=== PATIENT | male | born 1980 | race African-American/Black ===

== ENCOUNTER 2017-01-16 19:24 | Emergency (ER) | payer OTHER ==
--- NOTE | 2017-01-16 19:54 | DIAGNOSTIC IMAGING REPORT ---
PROCEDURE: XR ANKLE 3 OR 4 VIEWS - LEFT INDICATION: TRAUMA/INJURY TECHNIQUE: Four views. COMPARISON: None. FINDINGS: Osseous structures, joint spaces and soft tissues are normal. Ankle mortise is normal. IMPRESSION: 1. Normal left ankle.
--- NOTE | 2017-01-16 19:56 | ED NURSING NOTES ---
Clinical Report - Nurses [facility] [place] [address] 01/16/2017 19:25 Patient: MESSI HERNADEZ TRIAGE Triage time 19:34. Chief Complaint: LEFT LOWER EXTREMITY SWELLING and REDNESS. --19:38 Sheriff Stafford R.N. 19:34 01/16/17. BP: 149/89. HR: 95. RR: 18. O2 saturation: 95%. Temp: 98.7 F. Pain level now: 05/06. --19:38 Sheriff Stafford R.N. Weight: 109.7 kg stated. Height/Length: 74 inches Per Patient. BMI: 31.1. --19:38 Sheriff Stafford R.N. Medications AmLODIPine Besylate Oral 7.5, daily. Aspirin Oral (Tablet 325 mg), daily. Cyclobenzaprine HCl Oral (Tablet 10 mg) 1 tablet, 3x a day as needed. Hydrochlorothiazide Oral 25 mg, daily. --19:36 Sheriff Stafford R.N. Allergies No Known Drug Allergy. --19:36 Sheriff Stafford R.N. History Arrived by private vehicle. Historian: patient. Unaccompanied. Injury occurred. Location of injuries: left lateral ankle. Occurred at home. PAST MEDICAL HX: Tetanus status: up-to-date. SURGERY HX: No history of previous surgery. SOCIAL HX: Never smoker. History of drug use: marijuana. No alcohol use. FALL RISK ASSESSMENT: Fall risk assessment completed. No fall risk identified. NUTRITIONAL RISK ASSESSMENT: The nutritional risk assessment revealed no deficiencies. FUNCTIONAL ASSESSMENT: Functional assessment: no impairments noted. LEARNING NEEDS ASSESSMENT: The learning needs assessment revealed no barriers. SKIN INTEGRITY ASSESSMENT: Skin integrity risk assessment completed. No skin integrity risk identified. --19:38 Sheriff Stafford R.N. PROBLEMS: Constipation. Prior Injury, Same Area. Skin Avulsion. Plantar Puncture Wound. Uveitis. Chronic Headache. Anxiety Reaction. Headache. Arthritis. Fibromyalgia. CVA - Cerebrovascular Accident. Hypertension. Dyspepsia. Borderline diabetic. Cellulitis. Gout. Tetanus Status. Immunizations. --19:37 Sheriff Stafford R.N. PHYSICAL ASSESSMENT GENERAL / NEURO / PSYCH: Oriented X 4. Alert. Appears in no acute distress. Appears in pain. EXTREMITIES: Extremity pulses are within normal limits. Left ankle: tenderness and swelling. SKIN: Skin intact. Skin is warm and dry. --19:39 Sheriff Stafford R.N. NURSING PROGRESS NOTES Two patient identifiers checked. Call light placed in reach. Side rails up x 2. Bed placed in lowest position. Brakes of bed on. --19:39 Sheriff Stafford R.N. Cold pack applied. 4 inch karl bandage applied to left ankle. --20:31 McQuoid, Georgie, ER Tech1. DISPOSITION / DISCHARGE Condition at departure: stable. No learning barriers present. Discharge instructions provided and reviewed with the patient. Reviewed medication(s) side effects, precautions, dosing and course information. Prescription(s) given to the patient. Patient verbalized understanding. Written instructions provided in Malian. The patient was discharged home. He left the Emergency Department ambulatory and via private vehicle. ( Pt requesting to speak with provider. Pt unhappy, states that he is in too much pain for it not to be broken. Autumn Pérez notified and spoke with pt. Pt states he drove all the way here in a car with manual transmission from [employer] & can't drive all the way home now. Karl wrap ordered for pt comfort. Pt instructed to fill the Rx given and go home, elevate foot and rest.). --20:09 Joycelyn Michael R.N. 20:04 01/16/17. BP: deferred. HR: deferred. RR: 15 (regular and unlabored). O2 saturation: deferred. Temp: deferred. Godfrey-Perez pain scale: 01/04. --20:09 Joycelyn Michael R.N. Locked/Released at 01/16/2017 20:31 by Joycelyn Michael R.N.
--- NOTE | 2017-01-16 19:56 | ED CLINICAL REPORT ---
Clinical Report - Physicians/Mid Levels [facility] [address] [place] [address] 01/16/2017 19:25 Patient: MESSI HERNADEZ Time Seen: 1924; upon arrival, initial patient contact, initial documentation, patient care assumed. Arrived- By private vehicle. Historian- patient. HISTORY OF PRESENT ILLNESS Chief Complaint: Injury to the left ankle. The injury happened yesterday. The patient sustained a direct blow- kicked furniture (hit on bar stool). Occurred at home. ( states he hit it yesterday, but pain started today). Patient is experiencing severe pain. Patient denies injury to the head or neck. No other injury. REVIEW OF SYSTEMS The patient complains of pain on weight bearing. He has had swelling. No tingling, weakness, numbness, suspected foreign body or skin laceration. All systems otherwise negative, except as recorded above. PAST HISTORY See nurses notes. PROBLEMS: Constipation. Prior Injury, Same Area. Skin Avulsion. Plantar Puncture Wound. Uveitis. Chronic Headache. Anxiety Reaction. Headache. Arthritis. Fibromyalgia. CVA - Cerebrovascular Accident. Hypertension. Dyspepsia. Borderline diabetic. Cellulitis. Gout. Tetanus Status. Immunizations. --19:37 Sheriff Stafford R.N. SOCIAL HISTORY Never smoker. History of drug use: marijuana. No alcohol use. No recent travel. Is a local resident. FAMILY HISTORY No significant family medical history. ADDITIONAL NOTES The nursing notes have been reviewed with agreement regarding the chief complaint, HPI, ROS, PMH and patient medications and allergies. PHYSICAL EXAM Vital Signs: 01/16/2017 19:34 BP: 149/89. HR: 95. RR: 18. O2 saturation: 95%. Temp: 98.7 F. Pain level now: 10/10. Have been reviewed as normal and appear to be correct. Appearance: Alert. Oriented X3. No acute distress. Head: Head atraumatic. Eyes: Pupils equal, round and reactive to light. Eyes normal inspection. Respiratory: No respiratory distress. Skin: Skin intact. Skin warm and dry. Extremities: Ankle injury present. Left lateral ankle: mild tenderness of the lateral malleolus. Limited ROM secondary to pain (diminished plantar flexion, dorsiflexion, inversion and eversion). Neurovascular intact distally. No ligamentous laxity present. No joint effusion. No erythema, swelling, laceration, abrasion or ecchymosis. No puncture wound, foreign body or deformity. No foot injury. Foot and ankle exam otherwise negative. Extremities otherwise negative. Gait: Abnormal gait. Gait not tested due to pain. Neuro, Vascular and Tendons: Vascular status intact. Sensation intact. Motor intact. Tendon function intact. Neuro: Oriented X 3. No motor deficit. No sensory deficit. Note: isolated injury to ankle. LABS, X-RAYS, AND EKG X-Rays: Left ankle negative. Lt Ankle X-ray: (IMPRESSION: 1. Normal left ankle. Electronically Final signed by:Karri Swanson MD 01/16/2017 7:53:42 PM). The X-rays were interpreted by the radiologist and contemporaneously by me. Interpretation time: 19:54. 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 Patient counseled in person regarding the patient's stable condition, test results and diagnosis. 19:54. Differential Diagnosis: Other possible considerations: ankle fx vs contusions. Above considerations are based on history, physical exam, reassessment and X-Ray data. Differential diagnosis was discussed with patient. Disposition: Discharged home in good and unchanged condition (19:56). Condition: good and stable. CLINICAL IMPRESSION Acute nontraumatic pain in the left lower extremity (ankle). INSTRUCTIONS Apply ice for 20 minutes four times a day for one. Elevate affected areas above chest level for one days until better. Warnings: GENERAL WARNINGS: Return or contact your physician immediately if your condition worsens or changes unexpectedly, if not improving as expected, or if other problems arise. Specifically return if problem worsens. Prescription Medications: Naproxen 500 mg tablets: take 1 orally every 12 hours as needed for pain. Dispense twenty (20). No refills. Follow-up: Follow up with your doctor in about one week even if well. Summary of care provided to patient. Understanding of the discharge instructions verbalized by patient. (Electronically signed by Autumn Pérez A.R.N.P. 01/16/2017 20:51)
--- NOTE | 2017-01-16 19:56 | ED CLINICAL REPORT ---
Clinical Report - Physicians/Mid Levels [facility] [address] [place] [address] 01/16/2017 19:25 Patient: MESSI HERNADEZ Time Seen: 1924; upon arrival, initial patient contact, initial documentation, patient care assumed. Arrived- By private vehicle. Historian- patient. HISTORY OF PRESENT ILLNESS Chief Complaint: Injury to the left ankle. The injury happened yesterday. The patient sustained a direct blow- kicked furniture (hit on bar stool). Occurred at home. ( states he hit it yesterday, but pain started today). Patient is experiencing severe pain. Patient denies injury to the head or neck. No other injury. REVIEW OF SYSTEMS The patient complains of pain on weight bearing. He has had swelling. No tingling, weakness, numbness, suspected foreign body or skin laceration. All systems otherwise negative, except as recorded above. PAST HISTORY See nurses notes. PROBLEMS: Constipation. Prior Injury, Same Area. Skin Avulsion. Plantar Puncture Wound. Uveitis. Chronic Headache. Anxiety Reaction. Headache. Arthritis. Fibromyalgia. CVA - Cerebrovascular Accident. Hypertension. Dyspepsia. Borderline diabetic. Cellulitis. Gout. Tetanus Status. Immunizations. --19:37 Sheriff Stafford R.N. SOCIAL HISTORY Never smoker. History of drug use: marijuana. No alcohol use. No recent travel. Is a local resident. FAMILY HISTORY No significant family medical history. ADDITIONAL NOTES The nursing notes have been reviewed with agreement regarding the chief complaint, HPI, ROS, PMH and patient medications and allergies. PHYSICAL EXAM Vital Signs: 01/16/2017 19:34 BP: 149/89. HR: 95. RR: 18. O2 saturation: 95%. Temp: 98.7 F. Pain level now: 10/10. Have been reviewed as normal and appear to be correct. Appearance: Alert. Oriented X3. No acute distress. Head: Head atraumatic. Eyes: Pupils equal, round and reactive to light. Eyes normal inspection. Respiratory: No respiratory distress. Skin: Skin intact. Skin warm and dry. Extremities: Ankle injury present. Left lateral ankle: mild tenderness of the lateral malleolus. Limited ROM secondary to pain (diminished plantar flexion, dorsiflexion, inversion and eversion). Neurovascular intact distally. No ligamentous laxity present. No joint effusion. No erythema, swelling, laceration, abrasion or ecchymosis. No puncture wound, foreign body or deformity. No foot injury. Foot and ankle exam otherwise negative. Extremities otherwise negative. Gait: Abnormal gait. Gait not tested due to pain. Neuro, Vascular and Tendons: Vascular status intact. Sensation intact. Motor intact. Tendon function intact. Neuro: Oriented X 3. No motor deficit. No sensory deficit. Note: isolated injury to ankle. LABS, X-RAYS, AND EKG X-Rays: Left ankle negative. Lt Ankle X-ray: (IMPRESSION: 1. Normal left ankle. Electronically Final signed by:Karri Swanson MD 01/16/2017 7:53:42 PM). The X-rays were interpreted by the radiologist and contemporaneously by me. Interpretation time: 19:54. 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 Patient counseled in person regarding the patient's stable condition, test results and diagnosis. 19:54. Differential Diagnosis: Other possible considerations: ankle fx vs contusions. Above considerations are based on history, physical exam, reassessment and X-Ray data. Differential diagnosis was discussed with patient. Disposition: Discharged home in good and unchanged condition (19:56). Condition: good and stable. CLINICAL IMPRESSION Acute nontraumatic pain in the left lower extremity (ankle). INSTRUCTIONS Apply ice for 20 minutes four times a day for one. Elevate affected areas above chest level for one days until better. Warnings: GENERAL WARNINGS: Return or contact your physician immediately if your condition worsens or changes unexpectedly, if not improving as expected, or if other problems arise. Specifically return if problem worsens. Prescription Medications: Naproxen 500 mg tablets: take 1 orally every 12 hours as needed for pain. Dispense twenty (20). No refills. Follow-up: Follow up with your doctor in about one week even if well. Summary of care provided to patient. Understanding of the discharge instructions verbalized by patient. (Electronically signed by Autumn Pérez A.R.N.P. 01/16/2017 20:51)
--- NOTE | 2017-01-16 19:56 | ED NURSING NOTES ---
Clinical Report - Nurses [facility] [place] [address] 01/16/2017 19:25 Patient: MESSI HERNADEZ TRIAGE Triage time 19:34. Chief Complaint: LEFT LOWER EXTREMITY SWELLING and REDNESS. --19:38 Sheriff Stafford R.N. 19:34 01/16/17. BP: 149/89. HR: 95. RR: 18. O2 saturation: 95%. Temp: 98.7 F. Pain level now: 05/06. --19:38 Sheriff Stafford R.N. Weight: 109.7 kg stated. Height/Length: 74 inches Per Patient. BMI: 31.1. --19:38 Sheriff Stafford R.N. Medications AmLODIPine Besylate Oral 7.5, daily. Aspirin Oral (Tablet 325 mg), daily. Cyclobenzaprine HCl Oral (Tablet 10 mg) 1 tablet, 3x a day as needed. Hydrochlorothiazide Oral 25 mg, daily. --19:36 Sheriff Stafford R.N. Allergies No Known Drug Allergy. --19:36 Sheriff Stafford R.N. History Arrived by private vehicle. Historian: patient. Unaccompanied. Injury occurred. Location of injuries: left lateral ankle. Occurred at home. PAST MEDICAL HX: Tetanus status: up-to-date. SURGERY HX: No history of previous surgery. SOCIAL HX: Never smoker. History of drug use: marijuana. No alcohol use. FALL RISK ASSESSMENT: Fall risk assessment completed. No fall risk identified. NUTRITIONAL RISK ASSESSMENT: The nutritional risk assessment revealed no deficiencies. FUNCTIONAL ASSESSMENT: Functional assessment: no impairments noted. LEARNING NEEDS ASSESSMENT: The learning needs assessment revealed no barriers. SKIN INTEGRITY ASSESSMENT: Skin integrity risk assessment completed. No skin integrity risk identified. --19:38 Sheriff Stafford R.N. PROBLEMS: Constipation. Prior Injury, Same Area. Skin Avulsion. Plantar Puncture Wound. Uveitis. Chronic Headache. Anxiety Reaction. Headache. Arthritis. Fibromyalgia. CVA - Cerebrovascular Accident. Hypertension. Dyspepsia. Borderline diabetic. Cellulitis. Gout. Tetanus Status. Immunizations. --19:37 Sheriff Stafford R.N. PHYSICAL ASSESSMENT GENERAL / NEURO / PSYCH: Oriented X 4. Alert. Appears in no acute distress. Appears in pain. EXTREMITIES: Extremity pulses are within normal limits. Left ankle: tenderness and swelling. SKIN: Skin intact. Skin is warm and dry. --19:39 Sheriff Stafford R.N. NURSING PROGRESS NOTES Two patient identifiers checked. Call light placed in reach. Side rails up x 2. Bed placed in lowest position. Brakes of bed on. --19:39 Sheriff Stafford R.N. Cold pack applied. 4 inch karl bandage applied to left ankle. --20:31 McQuoid, Georgie, ER Tech1. DISPOSITION / DISCHARGE Condition at departure: stable. No learning barriers present. Discharge instructions provided and reviewed with the patient. Reviewed medication(s) side effects, precautions, dosing and course information. Prescription(s) given to the patient. Patient verbalized understanding. Written instructions provided in [place]. The patient was discharged home. He left the Emergency Department ambulatory and via private vehicle. ( Pt requesting to speak with provider. Pt unhappy, states that he is in too much pain for it not to be broken. Autumn Pérez notified and spoke with pt. Pt states he drove all the way here in a car with manual transmission from [place] & can't drive all the way home now. Karl wrap ordered for pt comfort. Pt instructed to fill the Rx given and go home, elevate foot and rest.). --20:09 Joycelyn Michael R.N. 20:04 01/16/17. BP: deferred. HR: deferred. RR: 15 (regular and unlabored). O2 saturation: deferred. Temp: deferred. Godfrey-Perez pain scale: 01/04. --20:09 Joycelyn Michael R.N. Locked/Released at 01/16/2017 20:31 by Joycelyn Michael R.N.
--- NOTE | 2017-01-16 19:57 | ED ORDER SUMMARY ---
..... Patient: MESSI HERNADEZ OrderSheet [facility] VisitID: [id number] [address] [place] [address] 36y, M Registration Date/Time: 01/16/2017 ORDER SHEET Weight: 109.7 kg (stated) Allergies: No Known Drug Allergy GENERAL ORDERS: Ankle 3 or 4V Left Urgent (19:36 01/16/2017 HBivens A.R.N.P.) (Ack 19:37 AMcQuoid ER Tech1) (19:48 Melyssa) Karl Wrap (20:12 01/16/2017 HBivens A.R.N.P.) (20:12 Mariola Tran.Mark.) MEDICATION ORDERS: IV FLUIDS: ORDER SHEET NOTES: [Electronically signed by Joycelyn Michael R.N. (20:31 01/16/2017)] [Electronically signed by Autumn PérezR.N.PRyan (20:51 01/16/2017)] [Electronically locked/signed by Joycelyn Michael R.N. (20:31 01/16/2017)]
--- NOTE | 2017-01-16 19:57 | ED ORDER SUMMARY ---
..... Patient: MESSI HERNADEZ OrderSheet [facility] VisitID: [id number] [address] [place] [address] 36y, M Registration Date/Time: 01/16/2017 ORDER SHEET Weight: 109.7 kg (stated) Allergies: No Known Drug Allergy GENERAL ORDERS: Ankle 3 or 4V Left Urgent (19:36 01/16/2017 HBivens A.R.N.P.) (Ack 19:37 AMcQuoid ER Tech1) (19:48 Melyssa) Karl Wrap (20:12 01/16/2017 HBivens A.R.N.P.) (20:12 Mariola Tran.Mark.) MEDICATION ORDERS: IV FLUIDS: ORDER SHEET NOTES: [Electronically signed by Joycelyn Michael R.N. (20:31 01/16/2017)] [Electronically signed by Autumn PérezR.N.PRyan (20:51 01/16/2017)] [Electronically locked/signed by Joycelyn Michael R.N. (20:31 01/16/2017)]
--- NOTE | 2017-01-16 20:51 | ED MAR SUMMARY ---
..... Medication Administration Record [facility] [address] [place] [address] Patient: MESSI HERNADEZ Visit ID: [id number] 36y, M Weight: 109.7 kg Height/Length: 74 in BMI: 31.1 ALLERGIES: No Known Drug Allergy
--- NOTE | 2017-01-16 20:51 | ED DISCHARGE INSTRUCTIONS ---
Patient: MESSI HERNADEZ General Instructions [facility] VisitID: [id number] [place] [address] 36y, M Registration Date/Time: 01/16/2017 Acute nontraumatic pain in the left lower extremity (ankle). INSTRUCTIONS Apply ice for 20 minutes four times a day for one. Elevate affected areas above chest level for one days until better. Warnings: GENERAL WARNINGS: Return or contact your physician immediately if your condition worsens or changes unexpectedly, if not improving as expected, or if other problems arise. Specifically return if problem worsens. Prescription Medications: Naproxen 500 mg tablets: take 1 orally every 12 hours as needed for pain. Dispense twenty (20). No refills. Follow-up: Follow up with your doctor in about one week even if well. Summary of care provided to patient. Understanding of the discharge instructions verbalized by patient. ADDITIONAL INFORMATION Pain, Uncertain Cause [Acute] Pain is the bodys way of calling attention to a problem. Pain can be caused by many conditions - some minor, some serious. In your case, we were not able to find the exact cause for your pain. However, at this time there is no sign of any serious or life-threatening illness causing your pain. Sometimes more tests will be needed to determine the cause. Other times, just allowing more time to pass will either make it clear what the problem is, or the pain will go away by itself. Home Care: You may use acetaminophen (Tylenol) or ibuprofen (Motrin, Advil) to control pain, unless another medicine was prescribed. [NOTE: If you have chronic liver or kidney disease or ever had a stomach ulcer or GI bleeding, talk with your doctor before using these medicines.] Follow Up with your doctor or as advised by our staff. Get Prompt Medical Attention if any of the following occur: Changes in the pattern of your pain Appearance of new symptoms Fever of 100.4F (38C) or higher, or as directed by your healthcare provider Myositis Myositis is a class of rare auto-immune diseases that cause chronic inflammation. These include Polymyositis, which affects muscles throughout the body, and Dermatomyositis, which affects both skin and muscle. Other forms can affect the joints, heart, lungs and intestines. This condition can be hard to diagnose, because it resembles other diseases. Immune cells in the body usually attack and destroy viruses and harmful bacteria. In myositis, for unknown reasons, the immune system begins attacking the skin and/or muscles. Sometimes other parts of the body are also affected. Myositis may be triggered by exposure to certain chemicals, drugs, or viruses. It is important that you tell your doctor about any [id number] drug use, infection, or exposure to other substances that occurred near the time when your symptoms started. Stopping the exposure or treating the infection may stop myositis. The symptoms of myositis can be very different depending on the type you have. Common symptoms are muscle weakness (especially muscles of the hips and shoulders), loss of energy (fatigue), rash or changes in the skin, and arthritis (swollen, painful joints). You may have trouble climbing stairs, getting out of chairs, lifting heavy things, or raising your arms overhead. Sometimes the muscles ache and become tender. The swallowing muscles may also be affected. The disease usually starts slowly and may take months or years to develop. You may notice that you have periods when your symptoms get worse (active disease) followed by periods where symptoms get better or go away completely (remission). Treatment options include medication, rest, physical therapy and exercise. Your doctor may prescribe oral steroids or drugs that suppress the immune system in order to slow down the progress of the disease. Home Care: If you were prescribed a medication, take it as directed. You may use acetaminophen (Tylenol) or ibuprofen (Motrin, Advil) to control pain, unless another medicine was prescribed. [NOTE: If you have chronic liver or kidney disease or ever had a stomach ulcer or GI bleeding, talk with your doctor before using these medicines.] Dont take ibuprofen or other NSAIDs (non-steroidal anti-inflammatory drugs) if you were prescribed prednisone. Remain physically active. Light exercise and physical activity are helpful to keep your muscles in the best shape possible. Talk to your doctor about an exercise plan that is right for you. If you are having muscle aches, rest as needed. Follow Up with your doctor or as advised by our staff. For more information contact: Myositis Association, www.myositis.org Arth[employer] 801-696-5991, www.arthritis.org Return Promptly or contact your doctor if any of the following occur: Change in bowel or bladder habits Blood in the stool (black or red color) Unexpected weight loss A lump in the breast or elsewhere Difficulty swallowing Change in the appearance of a wart or mole Persistent cough, hoarseness or coughing up blood Night sweats or unexplained fevers Shortness of breath Arthralgia Arthralgia is the term for pain in or around the joint. It is not a disease but a symptom. This may involve one or more joints. Sometimes arthralgias move from joint to joint. There are many causes for joint pain. These include: Injury Osteoarthritis (from wearing out of the joint surface) Rheumatoid arthritis (an autoimmune disease) Gout (inflammation of the joint due to crystals in the joint fluid) Infection inside the joint Bursitis (inflammation of the fluid-filled sacs around the joint) Lupus and other collagen-vascular disease Home Care: Rest the involved joint(s) until your symptoms improve. You may use acetaminophen (Tylenol) or ibuprofen (Motrin, Advil) to control pain, unless another pain medicine was prescribed. [NOTE: If you have chronic liver or kidney disease or ever had a stomach ulcer or GI bleeding, talk with your doctor before using these medicines.] Follow Up with your doctor or as advised by our staff. [NOTE: If you had an X-ray it will be reviewed by a specialist. You will be notified of any new findings that may affect your care.] Return Promptly or contact your doctor if any of the following occurs: Pain increases Pain moves to other joints New rash appears Fever of 100.4F (38C) or higher, or as directed by your healthcare provider Naproxen Sodium Oral tablet What is this medicine? NAPROXEN (na PROX en) is a non-steroidal anti-inflammatory drug (NSAID). It is used to reduce swelling and to treat pain. This medicine may be used for dental pain, headache, or painful monthly periods. It is also used for painful joint and muscular problems such as arthritis, tendinitis, bursitis, and gout. How should I use this medicine? Take this medicine by mouth with a glass of water. Follow the directions on the prescription label. Take it with food if your stomach gets upset. Try to not lie down for at least 10 minutes after you take it. Take your medicine at regular intervals. Do not take your medicine more often than directed. Long-term, continuous use may increase the risk of heart attack or stroke. A special MedGuide will be given to you by the pharmacist with each prescription and refill. Be sure to read this information carefully each time. Talk to your electronic security technician regarding the use of this medicine in children. Special care may be needed. What side effects may I notice from receiving this medicine? Side effects that you should report to your doctor or health youth care specialist as soon as possible: black or bloody stools, blood in the urine or vomit blurred vision chest pain difficulty breathing or wheezing nausea or vomiting severe stomach pain skin rash, skin redness, blistering or peeling skin, hives, or itching slurred speech or weakness on one side of the body swelling of eyelids, throat, lips unexplained weight gain or swelling unusually weak or tired yellowing of eyes or skin Side effects that usually do not require medical attention (report to your doctor or health youth care specialist if they continue or are bothersome): constipation headache heartburn What may interact with this medicine? alcohol aspirin cidofovir diuretics lithium methotrexate other drugs for inflammation like ketorolac or prednisone pemetrexed probenecid warfarin What if I miss a dose? If you miss a dose, take it as soon as you can. If it is almost time for your next dose, take only that dose. Do not take double or extra doses. Where should I keep my medicine? Keep out of the reach of children. Store at room temperature between 15 and 30 degrees C (59 and 86 degrees F). Keep container tightly closed. Throw away any unused medicine after the expiration date. What should I tell my health care provider before I take this medicine? They need to know if you have any of these conditions: asthma cigarette smoker drink more than 3 alcohol containing drinks a day heart disease or circulation problems such as heart failure or leg edema (fluid retention) high blood pressure kidney disease liver disease stomach bleeding or ulcers an unusual or allergic reaction to naproxen, aspirin, other NSAIDs, other medicines, foods, dyes, or preservatives or trying to get breast-feeding What should I watch for while using this medicine? Tell your doctor or health youth care specialist if your pain does not get better. Talk to your doctor before taking another medicine for pain. Do not treat yourself. This medicine does not prevent heart attack or stroke. In fact, this medicine may increase the chance of a heart attack or stroke. The chance may increase with longer use of this medicine and in people who have heart disease. If you take aspirin to prevent heart attack or stroke, talk with your doctor or health youth care specialist. Do not take other medicines that contain aspirin, ibuprofen, or naproxen with this medicine. Side effects such as stomach upset, nausea, or ulcers may be more likely to occur. Many medicines available without a prescription should not be taken with this medicine. This medicine can cause ulcers and bleeding in the stomach and intestines at any time during treatment. Do not smoke cigarettes or drink alcohol. These increase irritation to your stomach and can make it more susceptible to damage from this medicine. Ulcers and bleeding can happen without warning symptoms and can cause . You may get drowsy or dizzy. Do not drive, use machinery, or do anything that needs mental alertness until you know how this medicine affects you. Do not stand or sit up quickly, especially if you are an older patient. This reduces the risk of dizzy or fainting spells. This medicine can cause you to bleed more easily. Try to avoid damage to your teeth and gums when you brush or floss your teeth. You have been given the following additional information: Pain, Uncertain Cause (Acute) Myositis Arthralgia Naproxen Sodium Oral tablet (Electronically signed by Autumn Pérez A.R.N.P. 01/16/2017 20:51)
--- NOTE | 2017-01-16 20:51 | ED MED RECONCILIATION SUMMARY ---
Patient: MESSI HERNADEZ Medication Reconciliation Report [facility] VisitID: [id number] [address] [place] [address] 36y, M Registration Date/Time: 01/16/2017 Weight: 109.7 kg Height/Length: 74 in. BMI: 31.1 ALLERGIES: No Known Drug Allergy The patient's Home Medications are listed below: THE FOLLOWING MEDICATIONS NEED TO BE RECONCILED: AmLODIPine Besylate Oral 7.5, daily Aspirin Oral (325 mg), daily Cyclobenzaprine HCl Oral (10 mg) 1 tablet, 3x a day Hydrochlorothiazide Oral 25 mg, daily The source(s) of the original Home Medication information: Not obtained. The following Medications were given to the patient in the Emergency Department: None. The following Medications were prescribed to the patient: Naproxen 500 mg tablets: take 1 orally every 12 hours as needed for pain. Dispense twenty (20). No refills. -- Autumn Pérez A.R.N.P.
--- NOTE | 2017-01-16 20:51 | ED MED RECONCILIATION SUMMARY ---
Patient: MESSI HERNADEZ Medication Reconciliation Report [facility] VisitID: [id number] [address] [place] [address] 36y, M Registration Date/Time: 01/16/2017 Weight: 109.7 kg Height/Length: 74 in. BMI: 31.1 ALLERGIES: No Known Drug Allergy The patient's Home Medications are listed below: THE FOLLOWING MEDICATIONS NEED TO BE RECONCILED: AmLODIPine Besylate Oral 7.5, daily Aspirin Oral (325 mg), daily Cyclobenzaprine HCl Oral (10 mg) 1 tablet, 3x a day Hydrochlorothiazide Oral 25 mg, daily The source(s) of the original Home Medication information: Not obtained. The following Medications were given to the patient in the Emergency Department: None. The following Medications were prescribed to the patient: Naproxen 500 mg tablets: take 1 orally every 12 hours as needed for pain. Dispense twenty (20). No refills. -- Autumn Pérez A.R.N.P.
--- NOTE | 2017-01-16 20:51 | ED MAR SUMMARY ---
..... Medication Administration Record [facility] [address] [place] [address] Patient: MESSI HERNADEZ Visit ID: [id number] 36y, M Weight: 109.7 kg Height/Length: 74 in BMI: 31.1 ALLERGIES: No Known Drug Allergy
== END 2017-01-16 20:03 | disposition home or self-care (01) ==
LOC: ED SRH 19:24
DX: M25.572 Pain in left ankle and joints of left foot (principal); W22.09XA Striking against other stationary object, initial encounter; Y93.89 Activity, other specified; Y92.019 Unspecified place in single-family (private) house as the place of occurrence of the external cause; Y99.8 Other external cause status; I10 Essential (primary) hypertension; Z79.82 Long term (current) use of aspirin; Z79.899 Other long term (current) drug therapy

== ENCOUNTER 2017-02-08 22:50 | Emergency (ER) | payer OTHER ==
--- NOTE | 2017-02-08 23:18 | ED CLINICAL REPORT ---
Clinical Report - Physicians/Mid Levels [facility] [address] [place] [address] 02/08/2017 22:50 Patient: MESSI HERNADEZ Time Seen: 23:06; upon arrival, initial patient contact, initial documentation, patient care assumed. Arrived- By private vehicle. Historian- patient. HISTORY OF PRESENT ILLNESS Chief Complaint: BOIL and TENDER AREA. 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 (better and he cut it open last night). Not itchy. It is described as painful and burning. It has been located on the left leg. No cause has been identified. Similar symptoms previously: Worse. Recent medical care: Not recently seen/assessed. REVIEW OF SYSTEMS No fever. All systems otherwise negative, except as recorded above. PAST HISTORY See nurses notes. PROBLEMS: Acute Pain. Constipation. Prior Injury, Same Area. Skin Avulsion. Plantar Puncture Wound. Uveitis. Chronic Headache. Anxiety Reaction. Headache. Arthritis. Fibromyalgia. CVA - Cerebrovascular Accident. Hypertension. Dyspepsia. Borderline diabetic. Cellulitis. Gout. Tetanus Status. Immunizations. --23:07 Rufino Calixto R.N. ADDITIONAL SURGERIES: Dental Surgery [05/2015]. --23:07 Rufino Calixto R.N. SOCIAL HISTORY Former smoker. Occasional alcohol use. History of drug use: marijuana. No recent travel. Is a local resident. FAMILY HISTORY Negative. ADDITIONAL NOTES The nursing notes have been reviewed with agreement regarding the chief complaint, HPI, ROS, PMH and patient medications and allergies. PHYSICAL EXAM Vital Signs: 02/08/2017 23:04 BP: 155/84. HR: 67. RR: 15. O2 saturation: 99%. Temp: 98.3 F. Pain level now: 3/10. Have been reviewed as normal and appear to be correct. Appearance: Alert. Oriented X3. No acute distress. Eyes: Pupils equal, round and reactive to light. Conjunctivae and eyelids normal. Neck: Neck supple. Respiratory: No respiratory distress. Skin: Skin warm and dry. Normal skin color. No rash. Normal skin turgor. Small area of erythema with tenderness and warmth to left leg (scabbed pustule noted to martinez area with approx 1.5cm of surrouding erythema, nothing to I&D). No swelling or lymphangitis. Extremities: Normal external inspection. Extremities nontender. Neuro: Oriented X 3. No motor deficit. No sensory deficit. PROGRESS AND PROCEDURES Patient counseled in person regarding the patient's stable condition and diagnosis. Differential Diagnosis: Other possible considerations: substance abuse, abscess, cellulitis, mrsa, folliculitis. Above considerations are based on history and physical exam. Differential diagnosis was discussed with patient. Disposition: Discharged home in good and unchanged condition (23:17). Condition: good and stable. CLINICAL IMPRESSION Single superficial abscess to the left lower extremity. INSTRUCTIONS Apply dry and moist heat for 20 minutes four times a day until better. Protect wound and keep wound area clean. Soak in warm soapy water twice daily. Warnings: GENERAL WARNINGS: Return or contact your physician immediately if your condition worsens or changes unexpectedly, if not improving as expected, or if other problems arise. Specifically return if problem worsens. Prescription Medications: Bactrim DS 800 mg / 160 mg: take 1 tablet orally every 12 hours for 10 days. No refill. Motrin 800 mg tablets: take 1 tablet orally every 8 hours as needed for pain. Dispense thirty (30). No refills. Substitution is permissible. Bactroban 2% ointment: apply small amount to affected area three times daily for 5 days. Dispense twenty-two (22) grams. No refills. Substitution is permissible. Follow-up: Follow up with your doctor in about three days as needed and for wound check. Summary of care provided to patient. Understanding of the discharge instructions verbalized by patient. (Electronically signed by Autumn Pérez A.R.N.P. 02/08/2017 23:53)
--- NOTE | 2017-02-08 23:18 | ED NURSING NOTES ---
Clinical Report - Nurses [facility] [address] [place] [address] 02/08/2017 22:50 Patient: MESSI HERNADEZ TRIAGE Triage time 23:Feb 08 2017. Acuity: LEVEL 4. Chief Complaint: LEFT LOWER EXTREMITY REDNESS. Location of symptoms- left leg (pt with red area to left lower leg, reports hitting it on car door 3 days ago, type 2 diabetic). Alert. No acute distress. SEPSIS SCREEN: Sepsis Screen: negative. Infection suspected/documented. JIMMIE COMA SCORE: [place] Coma Scale: 15- eyes open spontaneously (4); best verbal response- oriented x 4 (5); best motor response- obeys commands (6). --23:10 Rufino Calixto R.N. 23:04 02/08/17. BP: 155/84. HR: 67. RR: 15. O2 saturation: 99%. Temp: 98.3 F. Pain level now: 10/04. --23:10 Rufino Calixto R.N. Weight: 108.8 kg stated. Height/Length: 74 inches Per Patient. BMI: 30.8. --23:06 Rufino Calixto R.N. Medications Aspirin Oral. --23:05 Rufino Calixto R.N. AmLODIPine Besylate Oral. --23:06 Rufino Calixto R.N. Omeprazole Oral. --23:06 Rufino Calixto R.N. Hydrochlorothiazide Oral. --23:06 Rufino Calixto R.N. Medication/allergy information source: the patient. --23:10 Rufino Calixto R.N. Allergies Metformin. --23:07 Rufino Calixto R.N. Trypsin. --23:07 Rufino Calixto R.N. History Arrived by private vehicle. Historian: patient. Injury occurred. Treatment JOURNEYMAN MEAT CUTTER: None. Took ibuprofen. PAST MEDICAL HX: Tetanus status: up-to-date. Immunizations: up-to-date. SOCIAL HX: Former smoker. Occasional alcohol use. History of drug use: marijuana. No infectious disease exposure. ABUSE ASSESSMENT: No report of abuse. SELF HARM ASSESSMENT: A self harm assessment was performed. The patient answered "no" to the question "Do you have thoughts of harming or killing yourself?". FALL RISK ASSESSMENT: Fall risk assessment completed. No fall risk identified. NUTRITIONAL RISK ASSESSMENT: The nutritional risk assessment revealed no deficiencies. FUNCTIONAL ASSESSMENT: Functional assessment: no impairments noted. LEARNING NEEDS ASSESSMENT: The learning needs assessment revealed no barriers. SKIN INTEGRITY ASSESSMENT: Skin integrity risk assessment completed. No skin integrity risk identified. --23:10 Rufino Calixto R.N. PROBLEMS: Acute Pain. Constipation. Prior Injury, Same Area. Skin Avulsion. Plantar Puncture Wound. Uveitis. Chronic Headache. Anxiety Reaction. Headache. Arthritis. Fibromyalgia. CVA - Cerebrovascular Accident. Hypertension. Dyspepsia. Borderline diabetic. Cellulitis. Gout. Tetanus Status. Immunizations. --23:07 Rufino Calixto R.N. ADDITIONAL SURGERIES: Dental Surgery [05/2015]. --23:07 Rufino Calixto R.N. Interventions ID and allergy band on patient. To treatment room. --23:10 Rufino Calixto R.N. PHYSICAL ASSESSMENT Ambulatory to room. GENERAL / NEURO / PSYCH: Oriented X 4. Alert. Appears in no acute distress. EXTREMITIES: Extremity pulses are within normal limits. Extremities exhibit normal ROM. Neuro-vascular status intact to the extremity. Normal gait. Left leg. SKIN: Skin is warm and dry. --23:11 Rufino Calixto R.N. NURSING PROGRESS NOTES Call light placed in reach. Side rails up x 1. Bed placed in lowest position. Brakes of bed on. --23:11 Rufino Calixto R.N. <<STRICKEN ENTRY-- 23:21 02/08/17. BP: 147/100. HR: 109 (regularly-irregular and tachycardic). RR: 16. O2 saturation: 97% on room air. Pain level now: 12/04. Additional comments: CP. --23:23 Wisam Roth R.N. --END STRIKE>> Charted on wrong patient. --23:24 Wisam Roth R.N. DISPOSITION / DISCHARGE Departure time: 2326. Condition at departure: improved and stable. No learning barriers present. Discharge instructions provided and reviewed with the patient. Reviewed medication(s) side effects, precautions, dosing and course information. Prescription(s) given to the patient. Reviewed wound care instructions. Reviewed referral to a primary care physician for followup. The patient has no activity restrictions. Patient verbalized understanding. Written instructions provided in Chinese. The patient was discharged home and unaccompanied at time of discharge. He left the Emergency Department ambulatory and via private vehicle. Patient driving. --23:32 Anette Solis R.N. 23:27 02/08/17. BP: 143/85. HR: 57 (regular and normal rate). RR: 18 (regular and unlabored). O2 saturation: 97% on room air. Temp: deferred. Pain level now: 09/06. --23:32 Anette Solis R.N. Locked/Released at 02/08/2017 23:32 by Anette Solis R.N.
--- NOTE | 2017-02-08 23:18 | ED NURSING NOTES ---
Clinical Report - Nurses [facility] [address] [place] [address] 02/08/2017 22:50 Patient: MESSI HERNADEZ TRIAGE Triage time 23:Feb 08 2017. Acuity: LEVEL 4. Chief Complaint: LEFT LOWER EXTREMITY REDNESS. Location of symptoms- left leg (pt with red area to left lower leg, reports hitting it on car door 3 days ago, type 2 diabetic). Alert. No acute distress. SEPSIS SCREEN: Sepsis Screen: negative. Infection suspected/documented. JIMMIE COMA SCORE: Wolf Coma Scale: 15- eyes open spontaneously (4); best verbal response- oriented x 4 (5); best motor response- obeys commands (6). --23:10 Rufino Calixto R.N. 23:04 02/08/17. BP: 155/84. HR: 67. RR: 15. O2 saturation: 99%. Temp: 98.3 F. Pain level now: 10/04. --23:10 Rufino Calixto R.N. Weight: 108.8 kg stated. Height/Length: 74 inches Per Patient. BMI: 30.8. --23:06 Rufino Calixto R.N. Medications Aspirin Oral. --23:05 Rufino Calixto R.N. AmLODIPine Besylate Oral. --23:06 Rufino Calixto R.N. Omeprazole Oral. --23:06 Rufino Calixto R.N. Hydrochlorothiazide Oral. --23:06 Rufino Calixto R.N. Medication/allergy information source: the patient. --23:10 Rufino Calixto R.N. Allergies Metformin. --23:07 Rufino Calixto R.N. Trypsin. --23:07 Rufino Calixto R.N. History Arrived by private vehicle. Historian: patient. Injury occurred. 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 PAST MEDICAL HX: Tetanus status: up-to-date. Immunizations: up-to-date. SOCIAL HX: Former smoker. Occasional alcohol use. History of drug use: marijuana. No infectious disease exposure. ABUSE ASSESSMENT: No report of abuse. SELF HARM ASSESSMENT: A self harm assessment was performed. The patient answered "no" to the question "Do you have thoughts of harming or killing yourself?". FALL RISK ASSESSMENT: Fall risk assessment completed. No fall risk identified. NUTRITIONAL RISK ASSESSMENT: The nutritional risk assessment revealed no deficiencies. FUNCTIONAL ASSESSMENT: Functional assessment: no impairments noted. LEARNING NEEDS ASSESSMENT: The learning needs assessment revealed no barriers. SKIN INTEGRITY ASSESSMENT: Skin integrity risk assessment completed. No skin integrity risk identified. --23:10 Rufino Calixto R.N. PROBLEMS: Acute Pain. Constipation. Prior Injury, Same Area. Skin Avulsion. Plantar Puncture Wound. Uveitis. Chronic Headache. Anxiety Reaction. Headache. Arthritis. Fibromyalgia. CVA - Cerebrovascular Accident. Hypertension. Dyspepsia. Borderline diabetic. Cellulitis. Gout. Tetanus Status. Immunizations. --23:07 Rufino Calixto R.N. ADDITIONAL SURGERIES: Dental Surgery [05/2015]. --23:07 Rufino Calixto R.N. Interventions ID and allergy band on patient. To treatment room. --23:10 Rufino Calixto R.N. PHYSICAL ASSESSMENT Ambulatory to room. GENERAL / NEURO / PSYCH: Oriented X 4. Alert. Appears in no acute distress. EXTREMITIES: Extremity pulses are within normal limits. Extremities exhibit normal ROM. Neuro-vascular status intact to the extremity. Normal gait. Left leg. SKIN: Skin is warm and dry. --23:11 Rufino Calixto R.N. NURSING PROGRESS NOTES Call light placed in reach. Side rails up x 1. Bed placed in lowest position. Brakes of bed on. --23:11 Rufino Calixto R.N. <<STRICKEN ENTRY-- 23:21 02/08/17. BP: 147/100. HR: 109 (regularly-irregular and tachycardic). RR: 16. O2 saturation: 97% on room air. Pain level now: 12/04. Additional comments: CP. --23:23 Wisam Roth R.N. --END STRIKE>> Charted on wrong patient. --23:24 Wisam Roth R.N. DISPOSITION / DISCHARGE Departure time: 2326. Condition at departure: improved and stable. No learning barriers present. Discharge instructions provided and reviewed with the patient. Reviewed medication(s) side effects, precautions, dosing and course information. Prescription(s) given to the patient. Reviewed wound care instructions. Reviewed referral to a primary care physician for followup. The patient has no activity restrictions. Patient verbalized understanding. Written instructions provided in Armenian. The patient was discharged home and unaccompanied at time of discharge. He left the Emergency Department ambulatory and via private vehicle. Patient driving. --23:32 Anette Solis R.N. 23:27 02/08/17. BP: 143/85. HR: 57 (regular and normal rate). RR: 18 (regular and unlabored). O2 saturation: 97% on room air. Temp: deferred. Pain level now: 09/06. --23:32 Anette Solis R.N. Locked/Released at 02/08/2017 23:32 by Anette Solis R.N.
--- NOTE | 2017-02-08 23:18 | ED CLINICAL REPORT ---
Clinical Report - Physicians/[facility] [address] [place] [address] 02/08/2017 22:50 Patient: MESSI HERNADEZ Time Seen: 23:06; upon arrival, initial patient contact, initial documentation, patient care assumed. Arrived- By private vehicle. Historian- patient. HISTORY OF PRESENT ILLNESS Chief Complaint: BOIL and TENDER AREA. 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 (better and he cut it open last night). Not itchy. It is described as painful and burning. It has been located on the left leg. No cause has been identified. Similar symptoms previously: Worse. Recent medical care: Not recently seen/assessed. REVIEW OF SYSTEMS No fever. All systems otherwise negative, except as recorded above. PAST HISTORY See nurses notes. PROBLEMS: Acute Pain. Constipation. Prior Injury, Same Area. Skin Avulsion. Plantar Puncture Wound. Uveitis. Chronic Headache. Anxiety Reaction. Headache. Arthritis. Fibromyalgia. CVA - Cerebrovascular Accident. Hypertension. Dyspepsia. Borderline diabetic. Cellulitis. Gout. Tetanus Status. Immunizations. --23:07 Rufino Calixto R.N. ADDITIONAL SURGERIES: Dental Surgery [05/2015]. --23:07 Rufino Calixto R.N. SOCIAL HISTORY Former smoker. Occasional alcohol use. History of drug use: marijuana. No recent travel. Is a local resident. FAMILY HISTORY Negative. ADDITIONAL NOTES The nursing notes have been reviewed with agreement regarding the chief complaint, HPI, ROS, PMH and patient medications and allergies. PHYSICAL EXAM Vital Signs: 02/08/2017 23:04 BP: 155/84. HR: 67. RR: 15. O2 saturation: 99%. Temp: 98.3 F. Pain level now: 3/10. Have been reviewed as normal and appear to be correct. Appearance: Alert. Oriented X3. No acute distress. Eyes: Pupils equal, round and reactive to light. Conjunctivae and eyelids normal. Neck: Neck supple. Respiratory: No respiratory distress. Skin: Skin warm and dry. Normal skin color. No rash. Normal skin turgor. Small area of erythema with tenderness and warmth to left leg (scabbed pustule noted to martinez area with approx 1.5cm of surrouding erythema, nothing to I&D). No swelling or lymphangitis. Extremities: Normal external inspection. Extremities nontender. Neuro: Oriented X 3. No motor deficit. No sensory deficit. PROGRESS AND PROCEDURES Patient counseled in person regarding the patient's stable condition and diagnosis. Differential Diagnosis: Other possible considerations: substance abuse, abscess, cellulitis, mrsa, folliculitis. Above considerations are based on history and physical exam. Differential diagnosis was discussed with patient. Disposition: Discharged home in good and unchanged condition (23:17). Condition: good and stable. CLINICAL IMPRESSION Single superficial abscess to the left lower extremity. INSTRUCTIONS Apply dry and moist heat for 20 minutes four times a day until better. Protect wound and keep wound area clean. Soak in warm soapy water twice daily. Warnings: GENERAL WARNINGS: Return or contact your physician immediately if your condition worsens or changes unexpectedly, if not improving as expected, or if other problems arise. Specifically return if problem worsens. Prescription Medications: Bactrim DS 800 mg / 160 mg: take 1 tablet orally every 12 hours for 10 days. No refill. Motrin 800 mg tablets: take 1 tablet orally every 8 hours as needed for pain. Dispense thirty (30). No refills. Substitution is permissible. Bactroban 2% ointment: apply small amount to affected area three times daily for 5 days. Dispense twenty-two (22) grams. No refills. Substitution is permissible. Follow-up: Follow up with your doctor in about three days as needed and for wound check. Summary of care provided to patient. Understanding of the discharge instructions verbalized by patient. (Electronically signed by Autumn Pérez A.R.N.P. 02/08/2017 23:53)
--- NOTE | 2017-02-08 23:53 | ED MED RECONCILIATION SUMMARY ---
Patient: MESSI HERNADEZ Medication Reconciliation Report [facility] VisitID: [id number] [address] [place] [address] 36y, M Registration Date/Time: 02/08/2017 Weight: 108.8 kg Height/Length: 74 in. BMI: 30.8 ALLERGIES: Metformin, Trypsin The patient's Home Medications are listed below: THE FOLLOWING MEDICATIONS NEED TO BE RECONCILED: AmLODIPine Besylate Oral Aspirin Oral Hydrochlorothiazide Oral Omeprazole Oral The source(s) of the original Home Medication information: patient The following Medications were given to the patient in the Emergency Department: None. The following Medications were prescribed to the patient: Bactrim DS 800 mg / 160 mg: take 1 tablet orally every 12 hours for 10 days. No refill. -- Autumn Pérez A.R.N.P. Motrin 800 mg tablets: take 1 tablet orally every 8 hours as needed for pain. Dispense thirty (30). No refills. Substitution is permissible. -- Autumn Pérez A.R.N.P. Bactroban 2% ointment: apply small amount to affected area three times daily for 5 days. Dispense twenty-two (22) grams. No refills. Substitution is permissible. -- Autumn Pérez A.R.N.P.
--- NOTE | 2017-02-08 23:53 | ED MED RECONCILIATION SUMMARY ---
Patient: MESSI HERNADEZ Medication Reconciliation Report [facility] VisitID: [id number] [address] [place] [address] 36y, M Registration Date/Time: 02/08/2017 Weight: 108.8 kg Height/Length: 74 in. BMI: 30.8 ALLERGIES: Metformin, Trypsin The patient's Home Medications are listed below: THE FOLLOWING MEDICATIONS NEED TO BE RECONCILED: AmLODIPine Besylate Oral Aspirin Oral Hydrochlorothiazide Oral Omeprazole Oral The source(s) of the original Home Medication information: patient The following Medications were given to the patient in the Emergency Department: None. The following Medications were prescribed to the patient: Bactrim DS 800 mg / 160 mg: take 1 tablet orally every 12 hours for 10 days. No refill. -- Autumn Pérez A.R.N.P. Motrin 800 mg tablets: take 1 tablet orally every 8 hours as needed for pain. Dispense thirty (30). No refills. Substitution is permissible. -- Autumn Pérez A.R.N.P. Bactroban 2% ointment: apply small amount to affected area three times daily for 5 days. Dispense twenty-two (22) grams. No refills. Substitution is permissible. -- Autumn Pérez A.R.N.P.
--- NOTE | 2017-02-08 23:53 | ED DISCHARGE INSTRUCTIONS ---
Patient: MESSI HERNADEZ General Instructions [facility] VisitID: [id number] [place] [address] 36y, M Registration Date/Time: 02/08/2017 Single superficial abscess to the left lower extremity. INSTRUCTIONS Apply dry and moist heat for 20 minutes four times a day until better. Protect wound and keep wound area clean. Soak in warm soapy water twice daily. Warnings: GENERAL WARNINGS: Return or contact your physician immediately if your condition worsens or changes unexpectedly, if not improving as expected, or if other problems arise. Specifically return if problem worsens. Prescription Medications: Bactrim DS 800 mg / 160 mg: take 1 tablet orally every 12 hours for 10 days. No refill. Motrin 800 mg tablets: take 1 tablet orally every 8 hours as needed for pain. Dispense thirty (30). No refills. Substitution is permissible. Bactroban 2% ointment: apply small amount to affected area three times daily for 5 days. Dispense twenty-two (22) grams. No refills. Substitution is permissible. Follow-up: Follow up with your doctor in about three days as needed and for wound check. Summary of care provided to patient. Understanding of the discharge instructions verbalized by patient. ADDITIONAL INFORMATION Abscess (Antibiotic Treatment Only) An abscess (sometimes called a boil) occurs when bacteria get trapped under the skin and begin to grow. Pus forms inside the abscess as the body responds to the bacteria. An abscess can occur with an insect bite, ingrown hair, blocked oil gland, pimple, cyst, or puncture wound. In the early stages, redness and tenderness are the only symptoms. Sometimes, this stage can be treated with antibiotics alone. If the abscess does not respond to antibiotic treatment, it will need to be drained with a small cut, under local anesthesia. Home care The following will help you care for your abscess at home: Soak the wound in hot water or apply hot packs (small towel soaked in hot water) to the area for 20 minutes at a time. Do this three to four times a day. Apply antibiotic cream or ointment onto the skin 3-4 times a day, unless something else was prescribed. Some ointments include an antibiotic plus a local pain reliever. If your doctor prescribed antibiotics, do not stop taking this medication until you have finished the prescribed course or the doctor tells you to stop. You may use an hpnv-pbz-twnkhyy pain medication to control pain, unless another pain medicine was prescribed. If you have chronic liver or kidney disease or ever had a stomach ulcer or GI bleeding, talk with your doctor before using these any of these. Follow-up care Follow up with your health care provider as advised by our staff. Look at your wound each day for the signs of worsening infection listed below. When to seek medical care Get prompt medical attention if any of the following occur: An increase in redness or swelling Red streaks in the skin leading away from the abscess An increase in local pain or swelling Fever of 100.4F (38C) or higher, or as directed by your health care provider Pus or fluid coming from the abscess Cellulitis You have an infection of the skin known as cellulitis. This usually starts with a scrape, cut, insect bite, blister or other opening in the skin which becomes infected. This is a serious condition. It must be watched closely to be sure the infection is not spreading. With antibiotic treatment, the size of the red area will gradually shrink in size until the skin returns to normal. This will take 7-10 days. The red area should never increase in size once the antibiotic medicine has been started. Occasionally, an infection will be resistant to one antibiotic and another one will have to be used. Home Care: 1) Limit the use of the affected part, since excess movement can cause the infection to spread. 2) If the infection is on your leg, walk as little as possible during the first few days of the treatment. Keep your leg elevated while sitting. This will reduce swelling. 3) Take all of the antibiotic medicine exactly as directed until it is gone. Be careful not to miss any doses, especially during the first seven days. Follow Up with your doctor or this facility as directed. Check the infected area daily for the warning signs listed below. Get Prompt Medical Attention if any of the following occur: -- Spreading area of redness -- Increasing swelling or pain -- Appearance of pus or drainage -- Fever over 100.4 F (38.0 C) oral, or over 101.4 F (38.6 C) rectal, after two days on antibiotics Staph Infection (MRSA) "Staph" is the short name for the common bacteria called "staphylococcus aureus". Staph bacteria are often present on the skin without causing an infection. If it gets under the skin an infection occurs. This causes redness, tenderness, swelling and sometimes fluid drainage. MRSA stands for "Methicillin-Resistant Staph Aureus". Unlike a common staph infection, MRSA bacteria are resistant to the usual antibiotics and harder to treat. Also, MRSA is more toxic than common staph bacteria. It can spread quickly throughout the body and cause a life-threatening illness. MRSA is spread to others by direct physical contact with the bacteria. MRSA can also be transmitted from items contaminated by a person who has the bacteria, such as bandages, towels, bed sheets, or sports equipment. It is not spread through the air. Once you have a MRSA skin infection, you are at risk of having it recur in the future. If MRSA infection is suspected, the doctor may take a wound culture to confirm the diagnosis. Any abscess will be drained. One or sometimes two antibiotics that work against MRSA will be prescribed. Home Care: 1) Take any antibiotics prescribed exactly as directed until they are gone. 2) Follow the same washing procedures as outlined for Household Members below. 3) Keep draining wounds covered with clean, dry bandages. Change dressings as they become soiled. 4) You and those in contact with you should wash their hands frequently with soap and warm water or use an alcohol-based hand brazing machine setter. Do this after each time you change the bandage or touch the wound. 5) Avoid sharing personal items such as towels, washcloths, razors, clothing, or uniforms. Wash soiled sheets, towels or clothes in hot water with laundry detergent. Use an automatic clothes dryer set on high to kill any remaining bacteria. 6) Remove any artificial nails and nail z[place]. 7) If you use a gym, wipe down equipment before and after each use. Treatment Of Household Members If you have been diagnosed with possible MRSA infection, those living with you are at higher risk of carrying the bacteria on their skin or in their nose, even if there is no sign of infection. Bacteria must be removed from the skin of all household members (including you) at the same time, so that it is not passed back and forth. Advise them to remove the bacteria as follows: Wash your whole body (scalp to toes) daily for five days with Hibiclens (chlorhexidine). Scrub fingernails with a brush for one minute twice a day. If any skin infections are present (boils, abscess, infected cut) these must be treated by a doctor. Washing alone will not treat a MRSA infection. Clean counter tops and children's toys; do not share personal items such as toothbrush and razors. It is okay to share glasses, plates, utensils. If antibiotic ointment was prescribed use it as directed. Follow Up with your doctor or as advised by our staff. If a wound culture was taken, call as directed in two days to obtain the results. If the culture result is positive for MRSA, tell medical personnel in the future that you were treated for this type of infection. Get Prompt Medical Attention if any of the following occur: -- Increasing redness, swelling or pain -- Red streaks in the skin around the wound -- Weakness or dizziness -- New appearance of pus or drainage from the wound -- New fever over 100.4 F (38.0 C) Sulfamethoxazole, Trimethoprim Oral tablet What is this medicine? SULFAMETHOXAZOLE; TRIMETHOPRIM or SMX-TMP (suhl fuh meth OK angeline zohl; trye METH oh prim) is a combination of a sulfonamide antibiotic and a second antibiotic, trimethoprim. It is used to treat or prevent certain kinds of bacterial infections. It will not work for colds, flu, or other viral infections. How should I use this medicine? Take this medicine by mouth with a full glass of water. Follow the directions on the prescription label. Take your medicine at regular intervals. Do not take it more often than directed. Do not skip doses or stop your medicine early. Talk to your agriscience instructor regarding the use of this medicine in children. Special care may be needed. This medicine has been used in children as young as 2 months of age. What side effects may I notice from receiving this medicine? Side effects that you should report to your doctor or health hemodialysis patient care specialist as soon as possible: allergic reactions like skin rash or hives, swelling of the face, lips, or tongue breathing problems fever or chills, sore throat irregular heartbeat, chest pain joint or muscle pain pain or difficulty passing urine red pinpoint spots on skin redness, blistering, peeling or loosening of the skin, including inside the mouth unusual bleeding or bruising unusually weak or tired yellowing of the eyes or skin Side effects that usually do not require medical attention (report to your doctor or health hemodialysis patient care specialist if they continue or are bothersome): diarrhea dizziness headache loss of appetite nausea, vomiting nervousness What may interact with this medicine? Do not take this medicine with any of the following medications: aminobenzoate potassium dofetilide metronidazole This medicine may also interact with the following medications: OWEN inhibitors like benazepril, enalapril, lisinopril, and ramipril cyclosporine digoxin diuretics indomethacin medicines for diabetes methenamine methotrexate phenytoin potassium supplements pyrimethamine sulfinpyrazone tricyclic antidepressants warfarin What if I miss a dose? If you miss a dose, take it as soon as you can. If it is almost time for your next dose, take only that dose. Do not take double or extra doses. Where should I keep my medicine? Keep out of the reach of children. Store at room temperature between 20 to 25 degrees C (68 to 77 degrees F). Protect from light. Throw away any unused medicine after the expiration date. What should I tell my health care provider before I take this medicine? They need to know if you have any of these conditions: anemia asthma being treated with anticonvulsants if you frequently drink alcohol containing drinks kidney disease liver disease low level of folic acid or [id number] dehydrogenase poor nutrition or malabsorption porphyria severe allergies thyroid disorder an unusual or allergic reaction to sulfamethoxazole, trimethoprim, sulfa drugs, other medicines, foods, dyes, or preservatives or trying to get breast-feeding What should I watch for while using this medicine? Tell your doctor or health hemodialysis patient care specialist if your symptoms do not improve. Drink several glasses of water a day to reduce the risk of kidney problems. Do not treat diarrhea with over the counter products. Contact your doctor if you have diarrhea that lasts more than 2 days or if it is severe and watery. This medicine can make you more sensitive to the sun. Keep out of the sun. If you cannot avoid being in the sun, wear protective clothing and use a sunscreen. Do not use sun lamps or tanning beds/booths. Ibuprofen Oral tablet What is this medicine? IBUPROFEN (eye BYOO proe fen) is a non-steroidal anti-inflammatory drug (NSAID). It is used for dental pain, fever, headaches or migraines, osteoarthritis, rheumatoid arthritis, or painful monthly periods. It can also relieve minor aches and pains caused by a cold, flu, or sore throat. How should I use this medicine? Take this medicine by mouth with a glass of water. Follow the directions on the prescription label. Take this medicine with food if your stomach gets upset. Try to not lie down for at least 10 minutes after you take the medicine. Take your medicine at regular intervals. Do not take your medicine more often than directed. A special MedGuide will be given to you by the pharmacist with each prescription and refill. Be sure to read this information carefully each time. Talk to your agriscience instructor regarding the use of this medicine in children. Special care may be needed. What side effects may I notice from receiving this medicine? Side effects that you should report to your doctor or health hemodialysis patient care specialist as soon as possible: allergic reactions like skin rash, itching or hives, swelling of the face, lips, or tongue black or bloody stools, blood in the urine or in vomit breathing problems changes in vision chest pain general ill feeling or flu-like symptoms nausea or vomiting redness, blistering, peeling or loosening of the skin, including inside the mouth slurred speech or weakness on one side of the body stomach pain unexplained weight gain or swelling unusually weak or tired yellowing of eyes or skin Side effects that usually do not require medical attention (report to your doctor or health hemodialysis patient care specialist if they continue or are bothersome): constipation or diarrhea dizziness gas or heartburn stomach upset What may interact with this medicine? Do not take this medicine with any of the following medications: cidofovir ketorolac methotrexate pemetrexed This medicine may also interact with the following medications: alcohol aspirin diuretics lithium other drugs for inflammation like prednisone warfarin What if I miss a dose? If you miss a dose, take it as soon as you can. If it is almost time for your next dose, take only that dose. Do not take double or extra doses. Where should I keep my medicine? Keep out of the reach of children. Store at room temperature between 15 and 30 degrees C (59 and 86 degrees F). Keep container tightly closed. Throw away any unused medicine after the expiration date. What should I tell my health care provider before I take this medicine? They need to know if you have any of these conditions: asthma cigarette smoker drink more than 3 alcohol containing drinks a day heart disease or circulation problems such as heart failure or leg edema (fluid retention) high blood pressure kidney disease liver disease stomach bleeding or ulcers an unusual or allergic reaction to ibuprofen, aspirin, other NSAIDS, other medicines, foods, dyes, or preservatives or trying to get breast-feeding What should I watch for while using this medicine? Tell your doctor or healthcare professional if your symptoms do not start to get better or if they get worse. This medicine does not prevent heart attack or stroke. In fact, this medicine may increase the chance of a heart attack or stroke. The chance may increase with longer use of this medicine and in people who have heart disease. If you take aspirin to prevent heart attack or stroke, talk with your doctor or health hemodialysis patient care specialist. Do not take other medicines that contain aspirin, ibuprofen, or naproxen with this medicine. Side effects such as stomach upset, nausea, or ulcers may be more likely to occur. Many medicines available without a prescription should not be taken with this medicine. This medicine can cause ulcers and bleeding in the stomach and intestines at any time during treatment. Ulcers and bleeding can happen without warning symptoms and can cause . To reduce your risk, do not smoke cigarettes or drink alcohol while you are taking this medicine. You may get drowsy or dizzy. Do not drive, use machinery, or do anything that needs mental alertness until you know how this medicine affects you. Do not stand or sit up quickly, especially if you are an older patient. This reduces the risk of dizzy or fainting spells. This medicine can cause you to bleed more easily. Try to avoid damage to your teeth and gums when you brush or floss your teeth. Mupirocin Topical ointment What is this medicine? MUPIROCIN (myoo PEER oh sin) is an antibiotic. It is used on the skin to treat skin infections. How should I use this medicine? This medicine is for external use only. Follow the directions on the prescription label. Wash your hands before and after use. Before applying, wash the affected area with mild soap and water and pat dry. Apply a small amount to the affected area and rub gently. You can cover the area with a gauze dressing. Do not get this medicine in your eyes. If you do, rinse out with plenty of cool tap water. Do not use your medicine more often than directed. Finish the full course of medicine prescribed by your doctor or health hemodialysis patient care specialist even if you think your condition is better. Do not use over large areas of burnt skin. Talk to your agriscience instructor regarding the use of this medicine in children. Special care may be needed. What side effects may I notice from receiving this medicine? Side effects that you should report to your doctor or health hemodialysis patient care specialist as soon as possible: skin rash, redness, continued swelling, burning, itching, stinging, or pain Side effects that usually do not require medical attention (report to your doctor or health hemodialysis patient care specialist if they continue or are bothersome): dry skin, itching What may interact with this medicine? Interactions are not expected. Do not use any other skin products on the affected area without telling your doctor or health hemodialysis patient care specialist. What if I miss a dose? If you miss a dose, take it as soon as you can. If it is almost time for your next dose, take only that dose. Do not take double or extra doses. Where should I keep my medicine? Keep out of the reach of children. Store at room temperature between 20 and 25 degrees C (68 and 77 degrees F). Throw away any unused medicine after the expiration date. What should I tell my health care provider before I take this medicine? They need to know if you have any of these conditions: an unusual or allergic reaction to mupirocin, polyethylene glycol (PEG), or other topical antibiotic medicine or trying to get breast-feeding What should I watch for while using this medicine? Tell your doctor or health hemodialysis patient care specialist if your skin condition does not begin to improve within 3 to 5 days. You have been given the following additional information: Abscess, Antiobiotic Treatment Only Cellulitis MRSA Skin Infection, Suspected Or Confirmed Sulfamethoxazole, Trimethoprim Oral tablet Ibuprofen Oral tablet Mupirocin Topical ointment (Electronically signed by Autumn Pérez A.R.N.P. 02/08/2017 23:53)
--- NOTE | 2017-02-08 23:53 | ED MAR SUMMARY ---
..... Medication Administration Record [facility] [address] [place], [place] [id number] Patient: MESSI HERNADEZ Visit ID: [id number] 36y, M Weight: 108.8 kg Height/Length: 74 in BMI: 30.8 ALLERGIES: Trypsin, Metformin
--- NOTE | 2017-02-08 23:53 | ED MAR SUMMARY ---
..... Medication Administration Record [facility] [address] [place], [place] [id number] Patient: MESSI HERNADEZ Visit ID: [id number] 36y, M Weight: 108.8 kg Height/Length: 74 in BMI: 30.8 ALLERGIES: Trypsin, Metformin
== END 2017-02-08 23:27 | disposition home or self-care (01) ==
LOC: ED SRH 22:50
DX: L02.416 Cutaneous abscess of left lower limb (principal); I10 Essential (primary) hypertension; Z79.82 Long term (current) use of aspirin; Z79.899 Other long term (current) drug therapy; Z87.891 Personal history of nicotine dependence; Z88.8 Allergy status to other drugs, medicaments and biological substances